=== PATIENT | female | born 1985 | race Caucasian/White ===

== ENCOUNTER 2021-03-15 07:34 | Day surgery (SDC) | payer OTHER ==
[~2021-03-15] VITALS: Ht 160 cm; Wt 72.6 kg
[2021-03-15] MEDS ORDERED: LIDOCAINE 1% 500 MG/50 ML VIAL ONE (08:38)
[2021-03-15] MEDS ORDERED: LIDOCAINE MPF 1% 10 MG/ML VIAL INJ SCH (08:50)
[2021-03-15] MEDS ORDERED: ACETAMINOPHEN EXTRA STRENGTH 500 MG TAB PO PRN (09:35)
[2021-03-15] MEDS ORDERED: ACETAMINOPHEN EXTRA STRENGTH 500 MG TAB PO ONE (09:41)
== END 2021-03-15 10:27 | disposition home or self-care (01) ==
LOC: MDS 07:34 → MMU 07:39 → MDS 10:27
PROVIDERS: ATTEND Internal Medicine Gastroenterology
DX: K76.0 Fatty (change of) liver, not elsewhere classified (principal)
CPT/HCPCS: 47000; 76942; 81025; J2001; Q0092